=== PATIENT | male | born 1990 | race Caucasian/White ===

== ENCOUNTER → 2018-07-24 | Day surgery (SDC) | payer OTHER ==
[~2018-07-24] MED LIST: DEXAMETHASONE SOD PHOS 10 MG/1 ML VIAL ONE; EPINEPHRINE HCL 1:1000 1ML 1 MG/ML AMP ONE; FENTANYL CITRATE/PF 100MCG/2 ML INJ ONE; GLYCOPYRROLATE INJ 1MG/ 5 ML SYR ONE; GUANFACINE HCL2 MG PO; KETAMINE HCL INJ 50 MG/ML 10 ML VIAL ONE; LEXAPRO10 MG PO; LIDOCAINE 1% W/EPINEPHRINE 20 ML VIAL ONE; LIDOCAINE HCL 2% LOCAL INJ 5 ML SDV VIAL INJ ONE; MIDAZOLAM HCL 2 MG/2 ML VIAL ONE; MORPHINE SULFATE INJ 10 MG/ML ONE; NEOSTIGMINE 5 MG/5ML SYR ONE; OFLOXACIN 0.3% (OTIC SOL) 5 ML BTL OT ONE; ONDANSETRON HCL INJ 2MG/ML 2ML 2 MG/ML VIAL ONE; PROPOFOL IV EMULSION 10 MG/ML 20 ML VIAL ONE; ROCURONIUM BROMIDE 10 MG/ML 5ML VIAL ONE; SEVOFLURANE INHAL SOLN 250 ML PEN BTL ONE
[2018-07-24 12:30] VITALS: BP 129/85
--- NOTE | 2018-07-24 16:43 | Operative Report ---
DATE OF PROCEDURE: 07/24/2018 SURGEON: Elier Wesley MD CHIEF COMPLAINT: Chronic sinusitis, nasal obstruction and otitis media with effusion on the right side. POSTOPERATIVE DIAGNOSES: Chronic sinusitis, nasal obstruction and otitis media with effusion on the right side. OPERATIVE PROCEDURES: 1. Bilateral anterior and posterior ethmoidectomy. 2. Bilateral maxillary sinus antrostomy, bilateral resection of polyps. 3. Bilateral maxillary sinus antrostomy, bilateral resection of tissue from maxillary antrum septoplasty plus biopsy of the nasopharynx on the right side. Myringotomy and tubes on the right. ANESTHESIA: [facility]. INDICATIONS: This 28-year-old male, who has history of nasal obstruction. He has postnasal drip and discharge from his nose. The patient also has recurrent and persistent effusion in the right ear. His condition has been treated with topical nasal steroid, decongestant, antibiotics with no improvement. On examination, he was noted to have right ear effusion, which was serous. Nasal exam showed deviated nasal septum to the left side about 30%. A CT scan of paranasal sinuses done before surgery showed the patient to have point tenderness involvement on both sides, maxillary sinus involvement on both sides of deviated nasal septum to the left and effusion in the right ear. No obvious nasopharyngeal abnormality was noted on the CT scan. It was decided that endoscopic sinus surgery with septoplasty, myringotomy and tubes on the right and biopsy of the right nasopharynx and other necessary procedure will be beneficial for him. DESCRIPTION OF PROCEDURE: The patient was taken to the operating room, put under general anesthesia, endotracheally intubated. The nose was injected with 1% Xylocaine with 1:100,000 epinephrine for hemostasis. Epinephrine-soaked pledget was inserted in nose and subsequently removed. The left paranasal sinuses were approached first. The middle turbinate was medialized. The bulla ethmoidalis was entered. Anterior and posterior ethmoid sinuses were dissected in a systematic fashion. Inflamed tissue was noted in both anterior and posterior ethmoid sinus area. It should be noted that the middle turbinate was slightly atrophic. Using a curved probe, natural os and maxillary sinus was entered. This was enlarged anteriorly and posteriorly using backbiter and Francisco-Cut forceps respectively. Using a 45 degree telescope, the maxillary antrum was examined and inflamed tissue in the maxillary antrum was dissected using the upbiting Francisco-Cut forceps. The right paranasal sinuses were approached. The middle turbinate was medialized, bulla ethmoidalis was entered. Anterior and posterior ethmoid sinuses were dissected in a systematic fashion. Inflamed tissue was noted in both anterior and posterior ethmoid sinus area. The middle turbinate on the right side was also noted to be atrophic. Care was taken during dissection to ascertain, although it was not entered. Using the curved probe, natural ostium of the maxillary sinus was entered. This was enlarged anterior and posterior using a backbiter and Francisco-Cut forceps respectively. Inflamed tissue in the maxillary antrum after being examined using the 45 degree telescope was removed using a microshaver. Septoplasty was performed. Hemitransfixion incision was done on the left side. Mucoperichondrial flap was elevated on left. Bony cartilaginous junction was encountered and this was . The perpendicular plate of the ethmoid was transected. This was removed along with . Septal spur and cartilaginous portion were removed using a [place] elevator and bony spur using a 4 mm straight chisel. Quadrangular cartilage after being freed from posterior inferior constrain, was able to swing back in the midline. Hemitransfixion incision was done using a 4-0 chromic suture in interrupted fashion. Septal whipstitch was done using 4-0 plain gut suture to reapproximate the mucoperichondrial flap and prevent septal hematoma formation. NasoPore was inserted in the sinus cavities on either side. This was done to prevent synechia formation and for hemostasis. The nasopharynx was examined. Increase lymphoid tissue was noted in the right nasopharynx more so than the left side. Using a Francisco-Cut forceps, the right nasopharynx was biopsied. The NasoPore was also inserted into the nasal cavities on either side to approximate the mucoperichondrial flap especially on the left side to prevent synechiae formation from the septum to the lateral wall of the nose. The right myringotomy and tube was performed. The right ear was examined and ear canal was debrided. Myringotomy was done in anterior superior quadrant, serous effusion was suctioned out. Juarez grommet tube was inserted. The left ear was examined. No effusion was noted in the middle ear cleft. The TM was not disturbed. The patient tolerated the above procedure well. Estimated blood loss about 30 mL. He was given 20 mg of Decadron intraoperatively. The patient was able to be transferred to recovery room in stable condition. MD JESSICA Bliss/CHIOMA /[id number]
--- NOTE | 2018-07-24 17:08 | Operative Report ---
DATE OF PROCEDURE: 07/24/2018 SURGEON: Elier Wesley MD CHIEF COMPLAINT: Chronic sinusitis, nasal obstruction, and right otitis media. POSTOPERATIVE DIAGNOSES: Chronic sinusitis, nasal obstruction, and right otitis media. OPERATIVE PROCEDURES: 1. Bilateral anterior and posterior appendectomy. 2. Bilateral maxillary sinus antrostomy, bilateral resection of polyps. 3. Bilateral maxillary sinus antrostomy, bilateral resection of tissue from maxillary antrum septoplasty, biopsy of the nasopharynx. Myringotomy and tubes in the right ear. ANESTHESIA: [facility]. INDICATIONS: This 28-year-old male has a history of nasal obstruction, postnasal drip and discharge from his nose. The patient also has effusion on the right ear. On examination, he was noted to have edema in his septum to the left side about 30%. Increased lymphoid tissue was noted in the nasopharynx, more on the right side. He was noted to have effusion in the right ear with normal TM, a middle ear cleft on the left. CT scan of paranasal sinuses done before surgery showed the patient has chronic sinusitis and confirmed the nasal septum on the left with ethmoid sinus involvement and maxillary sinus involvement on both sides. No obvious abnormality was noted in nasopharynx per the CAT scan. Effusion was noted in the right mastoid area. It was decided that endoscopic sinus surgery, septoplasty, and biopsy of nasopharynx on the right and myringotomy and tubes on the right side and other necessary procedure will be beneficial for him. The patient was taken to operating room, put under general anesthesia, endotracheally intubated. The nose was injected with 1% xylocaine with 1:100,000 epinephrine for hemostasis. Epinephrine-soaked pledget was inserted in the nose. The left paranasal sinuses were approached first. Middle turbinate was medialized. The middle turbinate was noted to be quite atrophic. The anterior and posterior ethmoid sinuses were dissected in systematic fashion. Care was taken during dissection in 2009, although was not entered. Inflamed tissue was dissected off of both anterior and posterior ethmoid sinus area. Using a curved probe, the natural ostium and maxillary sinus was entered. This was enlarged anteriorly and posteriorly using backbiter and Francisco-Cut postop respectively. Using a 45 degree telescope, the maxillary antrum was examined. Inflamed tissue and maxillary sinus were dissected using the upbiting Francisco-Cut forceps. The right paranasal sinuses were approached. Middle turbinate is medialized. Again, atrophic middle turbinate was noted. The bulla ethmoidalis was entered. Anterior and posterior ethmoid sinuses were dissected in a systematic fashion. Inflamed tissue was dissected in both anterior and posterior ethmoid sinus area. Care was taken during dissection to ascertain, although it was not entered. Using a curved probe, natural ostium of the maxillary sinus was entered. This was enlarged anteriorly and posterior using a backbiter and Francisco-Cut forceps respectively. Using a 45 degree telescope, the maxillary antrum was re-examined. The inflamed tissue and maxillary sinus was dissected using a microshaver. Septoplasty was performed. Hemitransfixion incision was done on the left side. Mucoperichondrial flap was elevated in the left. Bony cartilaginous junction was encountered and this was . Perpendicular plate of the ethmoid was transected. This was removed along with . MD JESSICA Bliss/CHIOMA /[id number]
== END | disposition home or self-care (01) ==
LOC: OR 07:10
PROVIDERS: ATTEND Otolaryngology Otolaryngology/Facial Plastic Surgery
DX: J32.0 Chronic maxillary sinusitis (principal); J32.2 Chronic ethmoidal sinusitis; J34.89 Other specified disorders of nose and nasal sinuses; J34.2 Deviated nasal septum; J34.3 Hypertrophy of nasal turbinates; J33.8 Other polyp of sinus; H65.21 Chronic serous otitis media, right ear; G47.33 Obstructive sleep apnea (adult) (pediatric); F81.9 Developmental disorder of scholastic skills, unspecified; F41.9 Anxiety disorder, unspecified
CPT/HCPCS: 30520; 31255; 31267; 42804; 69436; 88300; 88304; 88305; J0171; J1100; J2001; J2250; J2270; J2405; J2704; J3490